=== PATIENT | female | born 1955 | race Caucasian/White ===

== ENCOUNTER 2023-07-28 15:42 | Emergency (ER) | payer OTHER, SELFPAY ==
[2023-07-28 16:01] VITALS: BP 171/91; PULSE 68; RESP 16; TEMP 36.9; O2SAT 100; BMI 21.8
[2023-07-28 16:18] LABS: Bacteria Urine Many (>30); Culture Indicated Urine Specimen Cultured; RBC Urine 0-1/HPF (0-5/HPF); Squamous Epithelial Cell Urine 0-1 /HPF (0-5/HPF); WBC Urine >100/HPF (0-5/HPF)
[2023-07-28 19:07] VITALS: BP 189/99; PULSE 79; RESP 15; O2SAT 97
--- NOTE | 2023-07-28 19:13 | ED_ITS ---
HPI - General Adult General Chief complaint: Urogenital-Female Stated complaint: Poss UTI Time Seen by Provider: 07/28/23 19:04 Source: patient Mode of arrival: Ambulatory History of Present Illness HPI narrative: Patient is a 68-year-old female. Has a history of frequent urinary tract infections. Does not know the last time that she had infection or what medications she was on. She is here because she is having low back pain which h e states is normally this is the symptoms she gets when she has an infection. She is not had any fevers or nausea or vomiting. She is [place] go [place]. She did not want to get an infection while she was over there so she talked with her primary doctor. She has a prescription for Macrobid as a ?suppressive? treatment but she is not taking this. She does have allergies to sulfa and penicillin. Related Data Previous Rx's Medication Instructions Recorded nitrofurantoin macrocrystal 100 mg 100 mg PO BID 5 days #10 caps 07/28/23 capsule nitrofurantoin macrocrystal 100 mg 100 mg PO Q12H 5 days #10 caps 07/28/23 capsule Allergies Allergy/AdvReac Type Severity Reaction Status Date / Time Sulfa (Sulfonamide Allergy Unknown Verified 07/28/23 16:01 Antibiotics) Penicillins Allergy Swelling Verified 07/28/23 16:01 of legs Review of Systems Constitutional Constitutional: Reports system reviewed and no additional complaints, except as documented Gastrointestinal Gastrointestinal: Reports system reviewed and no additional complaints, except as documented Genitourinary Genitourinary: Reports system reviewed and no additional complaints, except as documented Musculoskeletal Musculoskeletal: Reports system reviewed and no additional complaints, except as documented Integumentary/Breasts Skin/Breast: Reports system reviewed and no additional complaints, except as documented Patient History Social History Smoking Status: Never smoker Smoking Status: Never smoker alcohol intake frequency: 0-2 drinks per day Substance Use Type: does not use Exam Initial Vital Signs Initial Vital Signs: Vital Signs Temperature 98.5 F 07/28/23 16:01 Pulse Rate 68 07/28/23 16:01 Respiratory Rate 16 07/28/23 16:01 Blood Pressure 171/91 H 07/28/23 16:01 Pulse Oximetry 100 07/28/23 16:01 Oxygen Delivery Method Room Air 07/28/23 16:01 Const General: cooperative, comfortable and No ill appearing [facility] Head: normal to inspection Resp Effort & Inspection: normal respiratory effort GI Inspection: normal to inspection Course Orders Ordered: Discontinued Medications Ondansetron HCl (Ondansetron 4 Mg Odt) 4 mg SL NOW PRN PRN Reason: Nausea And Vomiting Ondansetron HCl (Ondansetron 4 Mg/2 Ml Inj) 4 mg IV NOW PRN PRN Reason: Nausea And Vomiting Vital Signs Vital signs: Vital Signs - 8 hr 07/28/23 19:07 Pulse Rate 79 Respiratory Rate 15 Blood Pressure 189/99 H Pulse Oximetry 97 Oxygen Delivery Method Room Air Medical Decision Making Medical Records Medical records reviewed: Yes I reviewed the patient's medical records. Lab Data Lab results reviewed: Yes I reviewed the patient's lab results. Labs: Lab Results 07/28/23 Range/Units 15:57 Urine RBC 0-1/hpf (0-5/HPF) Urine WBC >100/hpf H (0-5/HPF) Ur Squamous Epith Cells 0-1 /hpf (0-5/HPF) Urine Bacteria Many (>30) H (None) Ur Culture Indicated? Specimen cultured Urine Dip Bedside Urine Glucose Negative Bedside Urine Bilirubin - Negative Bedside Urine Ketone - Negative Urine Specific [place] 1.010 Bedside Urine Occult Blood +/- Bedside Urine pH 6.0 Bedside Urine Protein - Negative Bedside Urine Urobilinogen - Negative Bedside Urine Nitrite - Negative Bedside Urine Leukocytes +++ 500 Esterase Point of care testing: Urine Dip Bedside Urine Glucose Negative Bedside Urine Bilirubin - Negative Bedside Urine Ketone - Negative Urine Specific [place] 1.010 Bedside Urine Occult Blood +/- Bedside Urine pH 6.0 Bedside Urine Protein - Negative Bedside Urine Urobilinogen - Negative Bedside Urine Nitrite - Negative Bedside Urine Leukocytes +++ 500 Esterase MDM Narrative Medical decision making narrative: No prior urine cultures available for review. Low suspicion for pyelonephritis. Urinalysis today is consistent with a UTI. Given her allergies starting her on Macrobid is not unreasonable. It was initially sent to 1 pharmacy and then she requested to be sent to another. She was going to talk with her primary doctor about the suppressive medication while she is on vacation. She was given return precautions. She expressed understanding and agreement. Discharge Plan Departure Patient Disposition: Home Clinical Impression: Urinary tract infection Instructions: DI for Urinary Tract Infection (UTI) Activity Restrictions/Additional Instructions: The treatment for the infection you have today would be Macrobid/nitrofurantoin. This medication is 100 mg twice a day for 5 days. A prescription was sent to [facility] in [place] per your request. I also recommend you contact your primary doctor for a follow-up. Prescriptions: New nitrofurantoin macrocrystal 100 mg capsule 100 mg PO Q12H 5 Days Qty: 10 0RF Rx Instructions: must administer with a meal/food nitrofurantoin macrocrystal 100 mg capsule 100 mg PO BID 5 Days Qty: 10 0RF Rx Instructions: must administer with a meal/food Stand Alone Forms: Patient Portal/API
== END 2023-07-28 19:20 | disposition home or self-care (01) ==
PROVIDERS: Emergency Medicine; Emergency Provider Emergency Medicine
DX: N39.0 Urinary tract infection, site not specified (principal)
CPT/HCPCS: 81003; 81015; 87077; 87086; 87186; 99282

== ENCOUNTER → 2023-09-08 11:10 | Outpatient (CLI) | payer OTHER, SELFPAY | PROVIDERS: Visit Provider Physician Assistant | DX: R30.0 Dysuria (principal) | CPT/HCPCS: 87077; 87086; 87186 ==